=== PATIENT | female | born 1955 | race Caucasian/White ===

== ENCOUNTER 2021-10-25 09:36 | Emergency (ER) | payer MEDICARE, OTHER ==
[~2021-10-25] VITALS: Ht 157.5 cm; Wt 93.0 kg
[2021-10-25] VITALS (7 sets, daily range): BP systolic 166–184; BP diastolic 96–100
[2021-10-25] MEDS ORDERED: ULTRAM50 MG PO (11:18)
== END 2021-10-25 11:55 | disposition home or self-care (01) ==
LOC: ED 09:36
DX: M79.672 Pain in left foot (principal); I10 Essential (primary) hypertension